=== PATIENT | female | born 1955 | race Caucasian/White ===

== ENCOUNTER 2022-02-05 07:08 | Emergency (ER) | payer BC ==
[2022-02-05] MEDS ORDERED: Ketorolac 30 MG/ML SDV IM ONE (07:47)
[2022-02-05] MEDS ORDERED: Triamcinolone Acetonide 40 MG/ML 1 ML SDV INJECT ONE (10:00)
[2022-02-05] MEDS ORDERED: Lidocaine 1% 5 ML VIAL INJECT ONE (10:01)
== END 2022-02-05 10:54 | disposition home or self-care (01) ==
LOC: JP.ED 07:08
DX: M17.0 Bilateral primary osteoarthritis of knee (principal); E11.9 Type 2 diabetes mellitus without complications; Z79.899 Other long term (current) drug therapy
CPT/HCPCS: 20610; 36415; 73564; 73565; 86618; 96372; 99283; J1885; J3301